=== PATIENT | female | born 1950 ===

== ENCOUNTER → 2017-08-23 | Outpatient (CLI) | payer OTHER, BC ==
[~2017-08-23] VITALS: Ht 165.1 cm; Wt 85.7 kg
[~2017-08-23] MED LIST: AMBIEN 5 MG TABL5 M1 PO; CYCLOBENZAPRINE10 MG PO; CYMBALTA60 MG PO; GLIPIZIDE5 MG; METFORMIN HCL500 MG PO; NEURONTIN 300300 M1 PO; VALIUM5 MG PO
--- NOTE | ~2017-08-23 | HC ---
[facility] [address] [place] [address] CONSULTATION Name: BRENT ROSA [id number] Admission: 08/23/17 Attend Phys: Christiano Gupta Discharge: Date of : 48 Report #: [id number] THIS REPORT FOR: //name// CC: [facility] physician/PCP Christiano Padilla DATE OF SERVICE: 08/23/2017 HISTORY OF PRESENT ILLNESS: The patient is a 67-year-old white woman changing physicians and scheduled to be [facility] by one of her Internal Medicine physicians. He has not made an appointment yet. The reason she is seeing me today is because she had developed bilateral lower extremity lesions since 2016 and the right leg has become ulcerated of lately. She had been applying topical hydrogen peroxide and triple antibiotic ointment. She has significant pain on the right leg. The other issues she is visiting with me today of is a left fourth finger lesion that started about a week ago after she put a hangnail. From thereon, things flare up and became pretty inflamed and hypertrophic in nature. No systemic symptoms. PAST MEDICAL HISTORY: Diabetes mellitus for a number of years. She had been on metformin for quite a while and of lately glipizide. The patient relates she did have a thyroid lesion that was biopsied and subsequently treated with radioactive iodine. The patient had previous surgery consisting of hysterectomy, cholecystectomy, bilateral carpal tunnel surgery, bilateral feet surgery and replacement. The patient also has a history of polymyalgia. DRUG ALLERGIES: None listed. MEDICATIONS: Gabapentin 300 mg t.i.d., duloxetine 60 mg daily, glipizide 5 mg daily, zolpidem tartrate at bedtime if needed, metformin 500 mg daily, diazepam daily, cyclobenzaprine p.r.n. SOCIAL HISTORY: . Three children. Many grandchildren. REVIEW OF SYSTEMS: Essentially noncontributory besides pain, right leg and lesion, left fourth finger and chronic right hip pain since she has to push her in a wheelchair. She is scheduled to be seen at the senior's clinic by Dr. Lawrence. PHYSICAL EXAMINATION: GENERAL: This is a well-developed, nontoxic-looking woman with height 5 feet 5 inches, weight 189 pounds. VITAL SIGNS: Temperature 98, pulse 74, BP 109/69, O2 saturation 95% on room air. HEENMT: Head normocephalic, atraumatic. Pupils reactive. Mouth: Repaired dental caries, good oral hygiene dentition. [address] [address] CONSULTATION Name: BRENT ROSA Room #: REG [facility] Racheal#: [id number] Admission: 08/23/17 Attend Phys: Christiano Gupta Discharge: Date of : 48 Report #: [id number] NECK: Supple. No thyromegaly or lymphadenopathy. BREASTS: Deferred. LUNGS: Clear to auscultation. HEART: S1, S2. No gallop or murmur. ABDOMEN: Soft, no masses or megaly. EXTREMITIES: On the right pretibial area, there are a couple of superficial ulceration. One of them is cultured. She does have surrounding erythema, which has a rather symmetrical area of distribution, suspect may be Neosporin associated contact dermatitis. On the left fourth finger around the nail bed, the recent area of paronychia secondary to pulling of hangnail. NEUROLOGIC: Grossly within normal limits. ASSESSMENT: 1. 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 2. Left fourth finger paronychia. 3. Diabetes mellitus. 4. History of radioactive iodine treatment. 5. Polymyalgia. 6. Status post hysterectomy, cholecystectomy, right total knee replacement, bilateral carpal tunnel surgery. SUGGESTIONS: Recommend avoidance of triple antibiotic ointment on account of possible NEOSPORIN ALLERGY. Bactroban ointment b.i.d. to right leg lesion and left fourth finger lesion, dispense 1 container; Minocin 100 mg p.o. b.i.d., #20, we will call this prescription to her local pharmacy. She needs a CBC with differential, CMP, ESR, CRP, hemoglobin A1c, T3, T4, TSH, HSV 1 and 2 serology. Follow up on 09/06/2016. <ELECTRONICALLY SIGNED> By: Christiano Padilla MD 08/24/17 [id number] Christiano Padilla MD /nt
[2017-08-23 11:05] VITALS: BP 109/69
[2017-08-23 12:09] LABS: ABSOLUTE NEUTROPHILS 6.1 thou/uL (1.4-8.2); BASOPHILS 0.7 % (0.0-2.0); EOSINOPHILS 1.2 % (0.0-3.0); HEMATOCRIT 39.9 % (37.0-47.0); HEMOGLOBIN 13.5 gm/dL (12.0-15.0); LYMPHOCYTES 27.5 % (24.0-44.0); MCH 29.1 pg (26.0-34.0); MCHC 33.7 g/dL (28.0-37.0); MCV 86.3 fL (80.0-100.0); MONOCYTES 3.8 % (1.0-8.0); PLATELET COUNT 227 thou/uL (150-400); POLYS 66.8 % (36.0-66.0); RBC 4.63 mil/uL (4.20-5.00); RDW 13.2 % (10.5-14.5); WBC 9.2 thou/uL (4.0-11.0)
[2017-08-23 12:28] LABS: ALBUMIN 3.4 g/dL (3.4-5.0); CALCIUM 9.1 mg/dL (8.5-10.1); CREATININE 0.8 mg/dL (0.6-1.0); POTASSIUM 4.3 mmol/L (3.5-5.1); TOTAL BILIRUBIN 0.3 mg/dL (<0.1-1.0)
[2017-08-24 02:12] LABS: GLYCOHEMOGLOBIN (HGB A1C) 9.3 % (4.8-5.6)
== END ==
LOC: SEN 11:02
PROVIDERS: Internal Medicine Infectious Disease
DX: E11.8 Type 2 diabetes mellitus with unspecified complications (principal); L03.012 Cellulitis of left finger; M35.3 Polymyalgia rheumatica; Z90.710 Acquired absence of both cervix and uterus; Z90.49 Acquired absence of other specified parts of digestive tract; Z96.651 Presence of right artificial knee joint

== ENCOUNTER → 2017-09-06 | Outpatient (CLI) | payer OTHER, BC ==
[2017-09-06 10:00] VITALS: BP 138/68
== END ==
LOC: SEN 09:00
DX: Z09 Encounter for follow-up examination after completed treatment for conditions other than malignant neoplasm (principal); E11.9 Type 2 diabetes mellitus without complications

== ENCOUNTER → 2017-09-19 | Outpatient (CLI) | payer OTHER, BC ==
[~2017-09-19] VITALS: Ht 157.5 cm; Wt 86.5 kg
[~2017-09-19] MED LIST changes: +DIFLUCAN200 MG
[2017-09-19 11:04] VITALS: BP 134/67
[2017-09-19 12:29] LABS: ABSOLUTE NEUTROPHILS 4.6 thou/uL (1.4-8.2); EOSINOPHILS 1.8 % (0.0-3.0); HEMATOCRIT 41.6 % (37.0-47.0); LYMPHOCYTES 30.9 % (24.0-44.0); MCH 29.1 pg (26.0-34.0); MCHC 33.6 g/dL (28.0-37.0); MCV 86.8 fL (80.0-100.0); MONOCYTES 4.1 % (1.0-8.0); PLATELET COUNT 185 thou/uL (150-400); POLYS 62.2 % (36.0-66.0); RDW 13.9 % (10.5-14.5); WBC 7.4 thou/uL (4.0-11.0)
== END ==
LOC: SEN 10:53
PROVIDERS: Internal Medicine Infectious Disease
DX: E11.9 Type 2 diabetes mellitus without complications (principal); J02.9 Acute pharyngitis, unspecified; R21 Rash and other nonspecific skin eruption

== ENCOUNTER → 2017-10-05 | Outpatient (CLI) | payer OTHER, BC ==
[2017-10-05 13:12] VITALS: BP 137/74
== END ==
LOC: SEN 10:10
DX: E11.40 Type 2 diabetes mellitus with diabetic neuropathy, unspecified (principal); F41.9 Anxiety disorder, unspecified; G47.00 Insomnia, unspecified; F32.9 Major depressive disorder, single episode, unspecified; R30.0 Dysuria

== ENCOUNTER → 2017-10-19 | Outpatient (CLI) | payer OTHER, BC ==
[~2017-10-19] MED LIST changes: +AMBIEN 5 MG TABL5 M1; +HUMALOG KW200 UNIT/1 SUBQ
[2017-10-19 13:49] VITALS: BP 133/81
== END ==
LOC: SEN 08:47
DX: Z09 Encounter for follow-up examination after completed treatment for conditions other than malignant neoplasm (principal); E11.9 Type 2 diabetes mellitus without complications; I10 Essential (primary) hypertension; R63.4 Abnormal weight loss

== ENCOUNTER → 2017-11-02 | Outpatient (CLI) | payer OTHER, BC ==
[~2017-11-02] MED LIST changes: +HUMALOG KW100 UNIT/1 SUBQ
[2017-11-02 12:58] VITALS: BP 136/80
[2017-11-02 14:22] LABS: URINE BILIRUBIN NEGATIVE (Negative); URINE BLOOD TRACE (Negative); URINE CLARITY CLEAR; URINE COLOR YELLOW; URINE GLUCOSE-RANDOM* 3+ (Negative); URINE KETONES 1+ (Negative); URINE PROTEIN (DIPSTICK) TRACE (Negative); URINE SPECIFIC GRAVITY >= 1.030 (1.005-1.035); URINE UROBILINOGEN 0.2 E.U./dl (0.2-1.0)
[2017-11-02 14:23] LABS: URINE LEUKOCYTES-REFLEX 1+ (Negative); URINE NITRITE-REFLEX POSITIVE (Negative)
[2017-11-02 14:31] LABS: BACTERIA-REFLEX >30 Many /HPF (None Seen); CASTS None Seen /LPF (None Seen); CRYSTALS None Seen /LPF (None Seen); MUCUS >6 Heavy strn/LPF (None Seen); SQUAMOUS 0-3 Few /LPF (0-3); URINE RBC 0-2 Rare /HPF (0-2); URINE WBC-REFLEX >25 Many /HPF (0-5); WBC CLUMPS Few (None Seen)
== END ==
LOC: SEN 08:53
PROVIDERS: Emergency Medicine
DX: Z09 Encounter for follow-up examination after completed treatment for conditions other than malignant neoplasm (principal); R30.9 Painful micturition, unspecified; E11.9 Type 2 diabetes mellitus without complications